=== PATIENT | female | born 1990 | race Caucasian/White ===

== ENCOUNTER 2016-11-13 14:44 | Emergency (ER) | payer OTHER, SELFPAY ==
[~2016-11-13] VITALS: Ht 152.4 cm; Wt 59.0 kg
[~2016-11-13 14:44] MED LIST: ATEN25TA PO; LOPR50TA PO; PRENTAB66 PO
[2016-11-13] MEDS ORDERED: SPRI28TA PO (14:58)
[2016-11-13 16:28] LABS: CONTROL LINE UCG INT CTR LINE PRESENT
[2016-11-13] MEDS ORDERED: KETOROLAC 30 MG/ML VIAL (J1885) IV ONE (17:00)
--- NOTE | 2016-11-13 18:08 | REP ---
Clinical: Left flank pain. Findings: Lung bases are clear. Liver, spleen, pancreas, gallbladder, bilateral adrenal glands and kidneys are normal. There is no perinephric stranding, hydroureteronephrosis, intrarenal or obstructing ureteral calculi. The enteric system is without obstruction or acute inflammatory process. Moderate fecal stasis suggested. Normal terminal ileum and appendix identified in the right lower quadrant. Pelvis demonstrates normal bladder and age-appropriate uterus/adnexa. No ascites. No free air. No obvious adenopathy. Abdominal aorta without aneurysm. Musculoskeletal structures are intact. Impression: Moderate fecal stasis. No acute intra-abdominal or pelvic pathology appreciated. Signed by Huber Wild MD 11/13/2016 05:59 P
[2016-11-13] MEDS ORDERED: CIPR500T89 PO (18:09)
[2016-11-13] MEDS ORDERED: NORC5TAB PO (18:10)
[2016-11-13] MEDS ORDERED: cefTRIAXone SOD 1 GM in D5W MINI-BAG PLUS 50 ML IV ONE (18:15)
[2016-11-13 18:46] VITALS: BP 128/74
== END 2016-11-13 18:49 | disposition home or self-care (01) ==
LOC: M ED 15:48
DX: N39.0 Urinary tract infection, site not specified (principal)
CPT/HCPCS: 74176; 81001; 84703; 87491; 87591; 96374; 99283; J0696; J1885

== ENCOUNTER 2017-08-11 23:21 | Emergency (ER) | payer OTHER, SELFPAY ==
[~2017-08-11] VITALS: Ht 152.4 cm; Wt 62.7 kg
[~2017-08-11 23:21] MED LIST changes: +CIPR-249 PO; +NORC1TAB4 PO; +SPRI28TA PO
[2017-08-11 23:23] VITALS: BP 133/75
[2017-08-11] MEDS ORDERED: AVIATAB PO (23:34)
== END 2017-08-11 23:39 | disposition left against medical advice (07) ==
LOC: M ED 23:21
DX: Z53.21 Procedure and treatment not carried out due to patient leaving prior to being seen by health care provider (principal)

== ENCOUNTER 2018-01-07 11:01 | Emergency (ER) | payer OTHER ==
[2018-01-07] MEDS: METOCLOPRAMIDE INJ 10MG/2ML VIAL (J2765) IV (12:43)
[2018-01-07] MEDS: NS 1,000 ML IV (12:43)
[2018-01-07] MEDS: ACETAMINOPHEN 325 MG TAB PO (12:43)
[2018-01-07 13:27] LABS: ANION GAP 7 MEQ/L (8-16); BLOOD UREA NITROGEN 9 MG/DL (7-18); CALCIUM LEVEL 8.4 MG/DL (8.5-10.1); CARBON DIOXIDE LEVEL 25 MEQ/L (21-32); CHLORIDE LEVEL 106 MEQ/L (98-107); CREATININE FOR GFR 0.63 MG/DL (0.55-1.30); GLOMERULAR FILTRATION RATE > 60.0 (>60); GLUCOSE, FASTING 80 MG/DL (70-100); HCG, SERUM QUANTITATIVE 75110 MIU/ML; POTASSIUM SERUM 3.5 MEQ/L (3.5-5.1); SODIUM LEVEL 138 MEQ/L (136-145)
[2018-01-07 13:33] LABS: KETONE, URINE AUTO RFX NEGATIVE (NEGATIVE); LEUKOCYTE ESTERASE UR AUTO RFX NEGATIVE (NEGATIVE); MUCUS, URINE RFX MODERATE (NEGATIVE); NITRITE, URINE AUTO RFX NEGATIVE (NEGATIVE); RBC, URINE AUTO RFX 6 /HPF (0-3); SPECIFIC GRAVITY UR AUTO RFX 1.026 (1.002-1.035); SQUAM EPITHELIAL CELL UR AURFX 6 /HPF (0-6); WBC, URINE AUTO RFX 1 /HPF (0-3)
== END 2018-01-07 15:23 | disposition home or self-care (01) ==
LOC: M ED 11:01
DX: O26.891 Other specified pregnancy related conditions, first trimester (principal); R11.0 Nausea; R51 Headache; Z3A.01 Less than 8 weeks gestation of pregnancy; Z87.42 Personal history of other diseases of the female genital tract; Z98.890 Other specified postprocedural states; Z87.440 Personal history of urinary (tract) infections
CPT/HCPCS: J2765